=== PATIENT | male | born 1990 | race Caucasian/White ===

== ENCOUNTER 2018-02-09 08:05 | Emergency (ER) | payer MEDICAID ==
[~2018-02-09] VITALS: Ht 170.2 cm; Wt 97.2 kg
[2018-02-09 08:11] VITALS: BP 128/83; Ht 170.2 cm; Wt 97.2 kg
== END 2018-02-09 09:04 | disposition home or self-care (01) ==
LOC: ED 08:05
DX: K64.5 Perianal venous thrombosis (principal)
CPT/HCPCS: J1885

== ENCOUNTER 2018-02-11 09:44 | Emergency (ER) | payer MEDICAID ==
[~2018-02-11] VITALS: Ht 170.2 cm; Wt 98.1 kg
[2018-02-11 09:51] VITALS: Ht 170.2 cm; Wt 98.1 kg
[2018-02-11 10:23] VITALS: BP 143/66
== END 2018-02-11 10:23 | disposition home or self-care (01) ==
LOC: ED 09:44
DX: K61.1 Rectal abscess (principal); Z87.19 Personal history of other diseases of the digestive system

== ENCOUNTER 2018-11-05 18:26 | Emergency (ER) | payer BC ==
[~2018-11-05] VITALS: Ht 170.2 cm; Wt 92.5 kg
[2018-11-05 18:50] VITALS: Ht 170.2 cm; Wt 92.5 kg
[2018-11-05 23:36] LABS: BASOPHIL % 0.4 % (0-2); PLATELET COUNT 353 x10^3mcL (130-400); RED CELL DISTRIBUTION WIDTH 13.1 % (11.5-14.5)
[2018-11-05 23:44] LABS: CALCIUM 9.1 mg/dL (8.5-10.1); CARBON DIOXIDE 25.5 mmol/L (21-32); CHLORIDE SERUM 97 mmol/L (98-107); CREATININE SERUM 0.8 mg/dL (0.7-1.3); GFR1 > 60 mL/min; GLUCOSE SERUM 119 mg/dL (74-106); POTASSIUM SERUM 3.7 mmol/L (3.5-5.1); SODIUM SERUM 136 mmol/L (136-145)
[2018-11-05 23:49] LABS: ALKALINE PHOSPHATASE 71 U/L (46-116); ALT/SGPT 32 U/L (16-63); AST/SGOT 18 U/L (15-37); BILIRUBIN TOTAL 0.67 mg/dL (0.20-1.00); TOTAL PROTEIN, SERUM 7.7 g/dL (6.4-8.2)
[2018-11-06 00:38] LABS: microscopic required? NO
[2018-11-06 00:49] LABS: UA SPECIFIC GRAVITY 1.015 (1.005-1.035); urine erythrocyte NEGATIVE (NEGATIVE)
[2018-11-06 01:29] VITALS: BP 131/81
== END 2018-11-06 01:29 | disposition home or self-care (01) ==
LOC: ED 18:26
PROVIDERS: Emergency Medicine
DX: F10.129 Alcohol abuse with intoxication, unspecified (principal); Y90.9 Presence of alcohol in blood, level not specified
CPT/HCPCS: J2405; J3411; J3475; J3490; J7030